=== PATIENT | male | born 1980 | race African-American/Black ===

== ENCOUNTER 2018-02-18 16:04 | Emergency (ER) | payer OTHER ==
[~2018-02-18] VITALS: Ht 175.3 cm; Wt 72.6 kg
[2018-02-18 16:32] VITALS: BP 127/89
--- NOTE | 2018-02-18 16:58 | Emergency Room Report ---
History of Present Illness General Chief Complaint: Skin Rash/Abscess Source: Patient Present Illness HPI 37-year-old male presents to the emergency department complaining of painful abscess to the inner right thigh 10 out of 10 in severity. He denies fevers, chills, swollen tender lymph nodes denies suspicion for STDs denies rashes, genital lesions or penile discharge. Denies joint pain or hx of immune compromise. reports symptoms have been progressive x 1 week. Allergies: Coded Allergies: No Known Allergies (Unverified , 02/18/18) Patient History Past Medical History: see triage record Past Surgical History: none Pertinent Family History: none Reviewed Nursing Documentation: PMH: Agreed; PSxH: Agreed Nursing Documentation-PMH Past Medical History: No Stated History Review of Systems All Other Systems: negative except mentioned in HPI Physical Exam Vital Signs Date Time Temp Pulse Resp B/P (MAP) Pulse Ox O2 Delivery O2 Flow Rate FiO2 02/18/18 16:25 98.2 67 18 127/89 95 Room Air 98.2 Skin: other - 1.8 cm diameter with indurated border and depressed/ulcerated center. scant white pus noted. mild surrounding erythema * right inner thigh Medical Decision Making PA Attestation Dr. dimas is my supervising Physician whom patient management has been discussed with. Diagnostic Impression: Primary Impression: Abscess ER Course Pt. presents to the ED c/o pain, swelling, and erythema of inner right thigh Ddx considered but are not limited to cellulitis, abscess, cystic acne, necrotizing fasciitis, insect bite. Vital signs: are WNL, pt. is afebrile H&PE are most consistent with [ ] ORDERS: none required at this time, the diagnosis is clinical ED INTERVENTIONS: - Marked area with skin pen. - Pt to return in 48 hours for wound check - had pt. take a picture of his wound so he can show provider at his follow up for comparison. DISCHARGE: At this time pt. is stable for d/c to home. Will provide printed patient care instructions, and any necessary prescriptions. Care plan and follow up instructions have been discussed with the patient prior to discharge. Last Vital Signs Date Time Temp Pulse Resp B/P (MAP) Pulse Ox O2 Delivery O2 Flow Rate FiO2 02/18/18 16:32 98.2 67 18 127/89 95 Room Air 98.2 Disposition: HOME, SELF-CARE Condition: Stable Scripts Mupirocin* (MUPIROCIN*) 22 Gm Oint...g. 1 APPLIC TOPIC THREE TIMES A DAY, #22 GM Prov: Elidia Gonzalez 02/18/18 Doxycycline Hyclate* (VIBRAMYCIN*) 100 Mg Capsule 100 MG ORAL EVERY 12 HOURS for 7 Days, #14 CAP 0 Refills Prov: Elidia Gonzalez 02/18/18 Patient Instructions: Abscess Additional Instructions: Take medications as directed. RETURN FOR 48 HOUR wound check* Follow up with a Primary Care Provider in 3-5 days, even if your symptoms have resolved. --Please review list of primary care clinics, if you do not already have a primary care provider Return sooner to ED if new symptoms occur, or current symptoms become worse. - Please note that this Emergency Department Report was dictated using [employer] facilities supervisor technology software, occasionally this can lead to erroneous entry secondary to interpretation by the dictation equipment. Elidia Gonzalez Feb 18, 2018 16:58
[2018-02-18] MEDS ORDERED: VIBRAMYCIN100 MG ORAL (17:02)
[2018-02-18] MEDS ORDERED: MUPIROCIN22 GM TOPIC (17:02)
[2018-02-18 17:45] VITALS: BP 127/89
== END 2018-02-18 18:00 | disposition home or self-care (01) ==
LOC: EMR 18:00
DX: L02.415 Cutaneous abscess of right lower limb (principal)
CPT/HCPCS: 99283

== ENCOUNTER 2018-03-19 12:06 | Emergency (ER) | payer OTHER ==
[~2018-03-19] VITALS: Ht 180.3 cm; Wt 70.3 kg
[~2018-03-19 12:06] MED LIST: MUPIROCIN22 GM TOPIC; VIBRAMYCIN100 MG ORAL
[2018-03-19] MEDS ORDERED: NKM (12:17)
[2018-03-19 12:27] VITALS: BP 125/81
[2018-03-19] MEDS ORDERED: Bacitracin Oint UD TOPIC ONE (12:30)
--- NOTE | 2018-03-19 12:35 | Emergency Room Report ---
History of Present Illness General Chief Complaint: Skin Rash/Abscess Source: Patient Present Illness HPI 38 YO Male presents to the ED c/o pain, swelling, and erythema of two wounds on the right medial thigh 3 days. Patient reports that he had similar lesion one month ago which resolved after treatment with antibiotics. Patient denies fevers, chills, recent travel or ill contacts with similar symptoms. He reports that the lesions are very tender to the touch she rates 9 out of 10 in severity tenderness otherwise 4 out of 10 in severity aching without exacerbating fracture such as palpation. Patient denies itching he denies swollen tender lymph nodes, joint pain or history of immunocompromise. UTD with tetanus. Allergies: Coded Allergies: No Known Allergies (Unverified , 03/19/18) Patient History Past Medical History: see triage record Past Surgical History: none Pertinent Family History: none Reviewed Nursing Documentation: PMH: Agreed; PSxH: Agreed Nursing Documentation-PM Past Medical History: No Stated History Review of Systems All Other Systems: negative except mentioned in HPI Physical Exam Vital Signs Date Time Temp Pulse Resp B/P (MAP) Pulse Ox O2 Delivery O2 Flow Rate FiO2 03/19/18 12:17 98.1 88 16 123/79 97 Sp02 EP Interpretation: reviewed, normal General Appearance: no apparent distress, alert, GCS 15, non-toxic Head: normocephalic, atraumatic Eyes: bilateral eye normal inspection, bilateral eye PERRL ENT: hearing grossly normal, normal voice Neck: full range of motion Respiratory: lungs clear, normal breath sounds, speaking full sentences Cardiovascular #1: regular rate, rhythm Musculoskeletal: back normal, gait/station normal, normal range of motion, non- tender Neurologic: alert, oriented x3, responsive, motor strength/tone normal, sensory intact, speech normal, grossly normal Psychiatric: judgement/insight normal Skin: normal color, no rash, warm/dry, well hydrated, other - there are two 0.6cm lesions/ open ulcer with purulent floor, and mild surrounding erythema, no warmth. no palpable fluctuance, right medial thigh. no LAD Medical Decision Making PA Attestation Dr. Hong is my supervising Physician whom patient management has been discussed with. Diagnostic Impression: Primary Impression: Abscess ER Course 38 YO Male presents to the ED c/o pain, swelling, and erythema of two wounds on the right medial thigh 3 days. Patient reports that he had similar lesion one month ago which resolved after treatment with antibiotics. Patient denies fevers, chills, recent travel or ill contacts with similar symptoms. He reports that the lesions are very tender to the touch she rates 9 out of 10 in severity tenderness otherwise 4 out of 10 in severity aching without exacerbating fracture such as palpation. Patient denies itching he denies swollen tender lymph nodes, joint pain or history of immunocompromise. UTD with tetanus. Ddx considered but are not limited to cellulitis, abscess, staph infection, necrotizing fasciitis, STI just to name a few. Vital signs: are WNL, pt. is afebrile H&PE are most consistent with Staph infection: There are two 0.6cm lesions/ open ulcer with purulent floor, and mild surrounding erythema, no warmth. no palpable fluctuance, right medial thigh. no LAD ORDERS: none required at this time, the diagnosis is clinical ED INTERVENTIONS: None required at this time. DISCHARGE: At this time pt. is stable for d/c to home. Will provide printed patient care instructions, and any necessary prescriptions. Care plan and follow up instructions have been discussed with the patient prior to discharge. Last Vital Signs Date Time Temp Pulse Resp B/P (MAP) Pulse Ox O2 Delivery O2 Flow Rate FiO2 03/19/18 12:17 98.1 88 16 123/79 97 Disposition: HOME, SELF-CARE Condition: Stable Scripts Mupirocin* (MUPIROCIN*) 22 Gm Oint...g. 1 APPLIC TOPIC THREE TIMES A DAY, #22 GM 2 Refills Prov: Elidia Gonzalez 03/19/18 Trimethoprim/Sulfamethoxazole 160/800* (BACTRIM DS TABLET*) 1 Each Tablet 1 TAB ORAL TWICE A DAY for 10 Days, #20 TAB Prov: Elidia Gonzalez 03/19/18 Patient Instructions: Abscess, Staphylococcal Infection Additional Instructions: Take medications as directed. Follow up with a Primary Care Provider in 3-5 days, even if your symptoms have resolved. --Please review list of primary care clinics, if you do not already have a primary care provider Return sooner to ED if new symptoms occur, or current symptoms become worse. - Please note that this Emergency Department Report was dictated using [employer] technician technology software, occasionally this can lead to erroneous entry secondary to interpretation by the dictation equipment. Elidia Gonzalez Mar 19, 2018 12:35
[2018-03-19] MEDS ORDERED: BACTRIM DS TAB1 EAC1 ORAL (12:37)
[2018-03-19] MEDS ORDERED: MUPIROCIN22 GM TOPIC (12:37)
[2018-03-19 12:40] VITALS: BP 125/81
== END 2018-03-19 12:42 | disposition home or self-care (01) ==
LOC: EMR 12:41
DX: L02.415 Cutaneous abscess of right lower limb (principal); F17.200 Nicotine dependence, unspecified, uncomplicated
CPT/HCPCS: 99283